=== PATIENT | female | born 1985 | race Caucasian/White ===

== ENCOUNTER 2019-04-06 09:31 | Outpatient (CLI) | payer OTHER, SELFPAY ==
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
== END 2019-04-06 09:32 | disposition home or self-care (01) ==
PROVIDERS: Family Provider Electrodiagnostic Medicine; PCP Electrodiagnostic Medicine; Visit Provider Electrodiagnostic Medicine
DX: R07.89 Other chest pain (principal); J42 Unspecified chronic bronchitis; F17.210 Nicotine dependence, cigarettes, uncomplicated
CPT/HCPCS: 71046

== ENCOUNTER → 2019-06-29 10:30 | Outpatient (BNVA) | payer OTHER, SELFPAY | PROVIDERS: Family Provider Electrodiagnostic Medicine; PCP Electrodiagnostic Medicine; Visit Provider Obstetrics & Gynecology | DX: Z87.42 Personal history of other diseases of the female genital tract (principal) | CPT/HCPCS: 88175 ==

== ENCOUNTER 2019-12-20 14:36 | Outpatient (CLI) | payer OTHER, SELFPAY ==
--- NOTE | 2019-12-20 14:42 | XR_ITS ---
WS: [id number] Left knee, 4 views, 12/20/2019 Clinical Data: KNEE PAIN, LEFT Comparison: None. Findings: No fractures or dislocations are seen. The joint spaces are normal. The patella is intact. The soft t issues are unremarkable. XR/XR knee LT 3V* 11139 Impression: Negative left knee.
== END 2019-12-20 14:37 | disposition home or self-care (01) ==
LOC: RAD 14:39
PROVIDERS: PCP Electrodiagnostic Medicine; Visit Provider Electrodiagnostic Medicine
DX: M25.562 Pain in left knee (principal)
CPT/HCPCS: 73562

== ENCOUNTER 2020-10-09 19:30 | Emergency (ER) | payer SELFPAY ==
[2020-10-09 19:34] VITALS: BP 124/83; PULSE 97; RESP 16; TEMP 36.6; O2SAT 96; BMI 23.8
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
[2020-10-09 19:59] VITALS: BP 132/78; PULSE 88; RESP 16; TEMP 36.4; O2SAT 98
== END 2020-10-09 20:00 | disposition home or self-care (01) ==
PROVIDERS: Emergency Provider Nurse Practitioner Family; PCP Electrodiagnostic Medicine
DX: T21.41XA Corrosion of unspecified degree of chest wall, initial encounter (principal); T21.42XA Corrosion of unspecified degree of abdominal wall, initial encounter; J45.909 Unspecified asthma, uncomplicated; F17.200 Nicotine dependence, unspecified, uncomplicated; Y92.512 Supermarket, store or market as the place of occurrence of the external cause
CPT/HCPCS: 99281

== ENCOUNTER 2021-01-06 16:28 | Emergency (ER) | payer SELFPAY ==
[2021-01-06 16:51] VITALS: BP 119/83; PULSE 81; RESP 16; TEMP 36.9; O2SAT 99
--- NOTE | 2021-01-06 17:00 | XRR_ITS ---
PROCEDURE INFORMATION: Exam: XR Chest Exam date and time: 01/06/2021 5:00 PM Age: 35 years old Clinical indication: Angina; Additional info: Chest pain TECHNIQUE: Imaging protocol: XR of the chest. Views: 1 view. COMPARISON: CR XR chest 2V* [id number] 04/06/2019 10:33 AM FINDINGS: Lungs: Unremarkable. No consolidation. Pleural spaces: Unremarkable. No pleural effusion. No pneumothorax. Heart/Mediastinum: Unremarkable. No cardiomegaly. Bones/joints: Unremarkable. XR/XR chest 1V portable [id number] IMPRESSION: No acute findings. Radiation Dose CTDIVOL = (mGy): DLP = (mGy-cm)
--- NOTE | 2021-01-06 17:00 | ECG_ITS ---
[facility] Test Date: 2021-01-06 Pat Name: Hillary Cheema Department: Room: Gender: Female [employer] Health Physicist: : 1985 Requested By: Wan Frost Order Number: [id number] Bala MD: Adiel Alonso M.D. Measurements Intervals [place] Rate: 81 P: 24 [place]: 127 QRS: 71 QRSD: 83 T: 56 QT: 334 QTc: 389 Interpretive Statements SINUS RHYTHM No previous ECG available for comparison Electronically Signed On 01-07-2021 19:59:33 MOTOCROSS RACER by Adiel Alonso M.D. [email or web address]
--- NOTE | 2021-01-06 17:04 | ED_ITS ---
HPI - Chest Pain General: Chief Complaint: Chest Pain Stated Complaint: body aches tingles like pins and needles Time Seen by Provider: 01/06/21 16:58 History of Present Illness: HPI narrative: 35-year-old female comes in today for episodes of palpitations. Patient reports she will feel her heart beating in her ears and then becomes really anxious with it. Patient thinks it may have been secondary to her not taking citalopram for a couple of days so she took her medicine. Patient states that at this time she just feels tired because she usually feels like that after she takes her citalopram. Patient denies any chronic medical problems except for depression and anxiety. Patient did report some mid back pain. Patient was concerned that it may be something related to her heart since he is not had symptoms where her heart feels like it is racing a nd she hears in her ears before. Patient appears well. Patient appears in no acute distress. Associated symptoms: Reports palpitations Review of Systems General: Reports: 10 or more systems reviewed and unremarkable except in HPI and below Card: Reports: palpitations [facility] ED PFSH: Medical History (Updated 01/06/21 @ 19:24 by WENDI Tovar) Anxiety and depression Diagnosed in her early 20s and is controlled with medication. She follows with Dr. Gomez. She does not have a psychiatrist or a therapist. Asthma Reports asthma diagnosed as a child. Denies any intubations or hospitalizations for asthma. Symptoms are controlled with albuterol inhaler 2-3 times a week as needed. No pertinent past medical history Denies: hypertension, hypercholesterolemia, diabetes, liver, kidney, heart, thyroid disease, bleeding/clotting disorders, PE/DVT. PMD: Dr. Gomez Surgical History (Updated 07/03/19 @ 10:21 by Abby Franco MD) S/P dilation and curettage Had a D&C done for miscarriage in 2007. Status post LEEP (loop electrosurgical excision procedure) of cervix 04/22/2012[place] Dr[place]izzo [place] [facility] [place] FROILAN 2 Family History Father Diabetes Mother Hypertension Grandmother Stroke paternal Denies family history of Colon cancer Ovarian cancer Heart disease Hyperlipidemia Breast cancer Uterine cancer Thyroid condition Social History (Updated 07/03/19 @ 10:07 by Abby Franco MD) Smoking and tobacco status: current every day smoker Alcohol intake: current Additional social history: - Started smoking at age 17 and currently smokes 1 pack per day. Alcohol Use: Drinks 4-5 drinks once weekly-usually beer Drug Use: Denies Work/Study Status: Stay at home mother Physical Exam Const: COMMON NORMALS: no acute distress and patient oriented x3 GENERAL APPEARANCE: cooperative HENMT: COMMON NORMALS: normocephalic, TM's normal bilaterally and Normal external nose present HEAD & SCALP: normal to inspection and normocephalic NOSE: Normal external nose present TYMPANIC MEMBRANE: TM's normal bilaterally MOUTH: Normal oral and palatal mucosa present THROAT: posterior oropharynx normal Eye: GENERAL EYE: appearance normal, both eyes and all related structures Neck/C-Spine: COMMON NORMALS: full ROM Lymph: LYMPHATIC: no lymphadenopathy noted Chest: COMMONS NORMALS: normal inspection of the chest Resp: COMMON NORMALS: normal respiratory effort and clear to auscultation bilaterally EFFORT & INSPECTION: Yes able to speak in complete sentences AUSCULTATION: clear to auscultation bilaterally Cardio: COMMON NORMALS: regular rate and regular rhythm RATE: regular rate RHYTHM: regular rhythm GI: COMMON NORMALS: non-tender : COMMON NORMALS: Yes no CVA tenderness BLADDER/KIDNEY EXAM: Yes no CVA tenderness Back/Pelvis: COMMON NORMALS: no CVA tenderness LUMBAR SPINE/LOWER BACK: Yes paraspinal muscle tenderness Extremity: COMMON NORMALS: normal to inspection Neuro: COMMON NORMALS: patient oriented x3 and moves all extremities Psych: COMMON NORMALS: mental status grossly normal and cooperative Skin: COMMON NORMALS: no rashes or lesions noted GENERAL SKIN EXAM: no rashes or lesions noted Course ED course: 1819, laboratory values have been unremarkable. We are awaiting a urine sample. I reviewed labs and EKG and chest x-ray with patient reassuring her at this time. Patient will probably need to have follow-up with primary care and consideration for a Holter monitor for further evaluation. Patient reports understanding and agrees to plan at this time. We will await urine specimen to rule out any signs of infection in the urine. Vital Signs: Vital signs: Vital Signs Temperature 98.3 F 01/06/21 17:25 Pulse Rate 81 01/06/21 17:25 Respiratory Rate 25 H 01/06/21 17:25 Blood Pressure 130/80 01/06/21 17:25 Pulse Oximetry 96 01/06/21 17:25 MDM - Chest Pain MDM Narrative: Medical decision making narrative: Patient came in today with complaints of palpitations and numbness and tingling all over with some chest and back discomfort. On exam respirations were even lungs were clear to auscultation. Abdomen soft nontender. No CVA tenderness. Vital signs were normal. Differential diagnosis includes but not limited to anxiety disorder, ACS, urinary tract infection, electrolyte disturbance. Laboratory values were unremarkable. Chest x-ray was normal. Believe the patient probably has some anxiety and depression issues. Patient was given 1/2 mg Ativan after coaxing by her mother. Mother reports the patient's been under a lot of stress lately and is concerned about her depression and anxiety. Patient denies any suicidal homicidal thoughts. I recommend that patient follow-up with her primary care for further evaluation of the palpitations and may need to have a Holter monitor in order to evaluate that further or adjustment in her medications to help with her anxiety and depression. Patient reported understanding of care plan and need for follow-up or return to the ER. Lab Data: Labs: Lab Results 01/06/21 01/06/21 01/06/21 17:26 17:26 17:26 WBC 8.6 10^3/uL 10^3/ uL (4.0-10.0) RBC 4.06 10^6/uL L 10 ^6/uL (4.1-5.3) Hgb 13.8 g/dL g/dL (11.5-15.3) Hct 38.8 % % (37.0-47.0) MCV 95.6 fl fl (81-99) MCH 34.0 pg pg (28.0-34.0) MCHC 35.6 g/dL g/dL (30.0-36.0) RDW 12.5 % % (12.1-15.1) Plt Count 293 10^3/cmm 10^3 /cmm (130-400) MPV 8.4 fL fL (7.4-10.4) Neut % (Auto) 52.7 % % Lymph % (Auto) 32.8 % % [place] % (Auto) 9.7 % % Eos % (Auto) 3.8 % % Baso % (Auto) 0.7 % % Neut # (Auto) 4.52 10^3/uL 10^3 /uL (1.8-7.7) Lymph # (Auto) 2.8 10^3/uL 10^3/ uL (0.8-4.8) [place] # (Auto) 0.8 10^3/uL 10^3/ uL (0.2-0.9) Eos # (Auto) 0.3 10^3/uL 10^3/ uL (0.0-0.8) Baso # (Auto) 0.1 10^3/uL 10^3/ uL (0.0-0.1) Nucleated RBC % (a uto) 0 % % Nucleated RBCs # 0.0 /100WBC /100W BC Sodium 139 mmol/L mmol/L (136-145) Potassium 4.6 mmol/L mmol/L (3.5-5.1) Chloride 104 mmol/L mmol/L (98-107) Carbon Dioxide 25 mmol/L mmol/L (22-29) Anion Gap 14.6 (5-19) BUN 13 mg/dL mg/dL (6-20) Creatinine 0.7 mg/dL mg/dL (0.5-0.9) GFR Calculation 95.2 mL/min mL/mi n (90-130) Glucose 87 mg/dL mg/dL (65-115) Calculated Osmolal ity 287 mOsm/kg mOsm/ kg (285-295) Calcium 9.0 mg/dL mg/dL (8.5-10.5) Total Bilirubin 0.2 mg/dL mg/dL (0.15-1.2) AST 14 U/L U/L (0-32) ALT 16 U/L U/L (0-33) Alkaline Phosphata se 57 IU/L IU/L (35-105) Troponin T Baselin e 6 ng/L ng/L (0-10) C-Reactive Protein 1.8 mg/L mg/L (0.0-4.9) Total Protein 6.0 g/dL L g/dL (6.6-8.7) Albumin 4.2 g/dL g/dL (3.5-5.2) Globulin 1.8 g/dL g/dL (1.3-4.6) Lipase 32 U/L U/L (13-60) HCG, Qual Urine Color Urine Appearance Urine pH Ur Specific Gravit y Urine Protein Urine Glucose (UA) Urine Ketones Urine Blood Urine Nitrate Urine Bilirubin Urine Urobilinogen Ur Leukocyte Opal ase 01/06/21 01/06/21 18:31 18:31 WBC RBC Hgb Hct MCV MCH MCHC RDW Plt Count MPV Neut % (Auto) Lymph % (Auto) [place] % (Auto) Eos % (Auto) Baso % (Auto) Neut # (Auto) Lymph # (Auto) [place] # (Auto) Eos # (Auto) Baso # (Auto) Nucleated RBC % (a uto) Nucleated RBCs # Sodium Potassium Chloride Carbon Dioxide Anion Gap BUN Creatinine GFR Calculation Glucose Calculated Osmolal ity Calcium Total Bilirubin AST ALT Alkaline Phosphata se Troponin T Baselin e C-Reactive Protein Total Protein Albumin Globulin Lipase HCG, Qual Negative (Negative) Urine Color Yellow (Yellow) Urine Appearance Clear (CLEAR) Urine pH 6.5 (5-7) Ur Specific Gravit y 1.010 (1.005-1.030) Urine Protein Neg (Negative) Urine Glucose (UA) Norm (Normal) Urine Ketones Negative (Negative) Urine Blood Neg (Negative) Urine Nitrate Negative (Negative) Urine Bilirubin Neg (Negative) Urine Urobilinogen Norm mg/dL mg/dL (Negative) Ur Leukocyte Opal ase Negative (Negative) EKG Data^: EKG 1: Attestation: I personally reviewed and interpreted this EKG as follows: (1700, EKG shows a sinus rhythm with a regular rate at [address] elevation or ectopy is noted. No prior exam was available for comparison.) Discharge Plan Discharge Patient Disposition: Home Clinical Impression: Palpitations, Anxiety and depression Condition: Stable Prescriptions: No Action Mirena 20 mcg/24 hours (5 yrs) 52 mg intrauterine device INTRAUTERI RF: 0 epinephrine 0.3 mg/0.3 mL auto-injector 0.3 mg IM Q10M PRNRF: 0 citalopram [Celexa] 10 mg tablet 10 mg PO DAILY RF: 0 omega-3 fatty acids [Fish Oil Concentrate] 1,000 mg capsule 1,000 mg PO DAILY RF: 0 echinacea 380 mg capsule 380 mg PO DAILY RF: 0 zinc acetate 50 mg (zinc) capsule 50 mg PO DAILY RF: 0 multivitamin with minerals [Hair,Skin and Nails] Tablet 1 tab PO DAILY RF: 0 Collagen Plus Vitamin C 125-740 mg capsule PO RF: 0 multivitamin Capsule 1 cap PO DAILY RF: 0 hydroxycut PO RF: 0 hydrocortisone 1 % cream 1 applic topical BID Qty: 28.35 RF: 0 Discharge Orders: Discharge ED (Routine); Ordered 01/06/21 Ordered By: Wan Jones Referrals: Chapito Gomez, [Primary Care Provider] - Discharge Diet: Usual diet Discharge Activity: Increase activity as tolerated Patient Instructions: Heart Palpitations (ED), Opioid Safety Activity Restrictions/Additional Instructions: Home and rest. Drink plenty of water. Avoid caffeinated beverages. Activity as tolerated. Follow-up with primary care for further evaluation and instructions. You may need to have a Holter monitor which will monitor your heart rate and rhythm over a prolonged period of time in order to evaluate these episodes of palpitations. Continue with your routine medications and follow-up. Return to the ER for new concerns or worsening symptoms. Coding Level of Care Code ED Cage Maker for Toi Fwtod Exam Comprehensive
[2021-01-06 17:25] VITALS: BP 130/80; PULSE 75; PULSE 81; RESP 25; TEMP 36.8; O2SAT 96
[2021-01-06 17:35] LABS: Basophils # 0.1 10^3/uL (0.0-0.1); Basophils % 0.7 %; Eosinophils # 0.3 10^3/uL (0.0-0.8); Eosinophils % 3.8 %; Hematocrit 38.8 % (37.0-47.0); Hemoglobin 13.8 g/dL (11.5-15.3); Lymphocytes # 2.8 10^3/uL (0.8-4.8); Lymphocytes % 32.8 %; Mean Corpuscular HGB Conc 35.6 g/dL (30.0-36.0); Mean Corpuscular Volume 95.6 fl (81-99); Mean Platelet Volume 8.4 fL (7.4-10.4); Monocytes # 0.8 10^3/uL (0.2-0.9); Monocytes % 9.7 %; Neutrophils # 4.52 10^3/uL (1.8-7.7); Neutrophils % 52.7 %; Nucleated Red Blood Cells % 0 %; Platelet Count 293 10^3/cmm (130-400); Red Blood Count 4.06 10^6/uL (4.1-5.3); Red Cell Distribution Width 12.5 % (12.1-15.1); White Blood Count 8.6 10^3/uL (4.0-10.0)
[2021-01-06 18:03] LABS: Alanine Aminotransferase 16 U/L (0-33); Albumin Level 4.2 g/dL (3.5-5.2); Alkaline Phosphatase 57 IU/L (35-105); Aspartate Amino Transferase 14 U/L (0-32); Blood Urea Nitrogen 13 mg/dL (6-20); C Reactive Protein 1.8 mg/L (0.0-4.9); Carbon Dioxide 25 mmol/L (22-29); Chloride 104 mmol/L (98-107); Globulin 1.8 g/dL (1.3-4.6); Glomerular Filtration Rate 95.2 mL/min (90-130); Glucose 87 mg/dL (65-115); Lipase 32 U/L (13-60); Osmolality Calculated 287 mOsm/kg (285-295); Sodium 139 mmol/L (136-145); Total Bilirubin 0.2 mg/dL (0.15-1.2)
[2021-01-06 18:06] LABS: Anion Gap 14.6 (5-19); Potassium 4.6 mmol/L (3.5-5.1)
[2021-01-06 18:07] LABS: Troponin(5th) Baseline 6 ng/L (0-10)
[2021-01-06 19:15] LABS: Add Urine Microscopic? NO; Charge for UA Resulting for Rev
[2021-01-06 19:21] LABS: Bilirubin Urine Neg (Negative); Blood Urine Neg (Negative); Glucose Urine UA Norm (Normal); Ketones Urine Negative (Negative); Leukocyte Esterase Urine Negative (Negative); Nitrate Urine Negative (Negative); Protein Urine Neg (Negative); Urine Appearance Clear (CLEAR); Urine Color Yellow (Yellow); Urobilinogen Urine Norm (Negative); pH Urine 6.5 (5-7)
[2021-01-06 19:22] LABS: HCG Qualitative Urine. Negative (Negative)
[2021-01-06 19:48] VITALS: BP 120/69; PULSE 73; RESP 20; O2SAT 98
[2021-01-06] MEDS: LORazepam 0.5 mg Tablet PO (19:53)
== END 2021-01-06 20:00 | disposition home or self-care (01) ==
PROVIDERS: Emergency Provider Nurse Practitioner Family; PCP Electrodiagnostic Medicine
DX: R00.2 Palpitations (principal); F41.9 Anxiety disorder, unspecified; F32.9 Major depressive disorder, single episode, unspecified; F17.210 Nicotine dependence, cigarettes, uncomplicated
CPT/HCPCS: 71045; 80053; 81003; 81025; 83690; 84484; 85025; 86140; 93005; 99284